=== PATIENT | male | born 1995 | race Caucasian/White ===

== ENCOUNTER 2017-11-16 20:11 | Emergency (ER) | payer SELFPAY ==
[2017-11-16] MEDS ORDERED: TRAZ100T10 PO ×2 (20:18→20:23)
[2017-11-16] MEDS ORDERED: ALPR.5 PO (20:19)
--- NOTE | 2017-11-16 20:25 | PD ---
HPI Chief Complaint: Medication refill Time Seen by Provider: 20:19 Travel History International Travel<30 days: No Contact w/Intl Traveler<30days: No History of Present Illness HPI The patient is 22 years old. He arrives here today having taken a bus from [place]. Upon disembarking from the bus at the bus station he called EMS and asked for a ride to the ER with a complaint of anxiety. He reports taking Xanax and has not taken it for a few days. He denies homicidal and suicidal ideation. He states he would like a refill for his medications including Xanax and trazodone. Location neuropsychiatric. Severity mild. Timing constant. Denies drugs/alcohol. PFSH Social History Tobacco Use: No Allergies-Medications Reported Meds & Prescriptions Reported Meds & Active Scripts Active Reported Xanax (Alprazolam) 0.5 Mg Tab 0.5 Mg PO Q6H PRN Trazodone (Trazodone HCl) 100 Mg Tablet 100 Mg PO HS Review of Systems Except as stated in HPI: all other systems reviewed are Neg General / Constitutional: No: Fever Physical Exam Narrative GENERAL: 22-year-old male well-nourished well-developed, luggage at the bedside SKIN: Warm and dry. HEAD: Atraumatic. Normocephalic. EYES: Pupils equal and round. No scleral icterus. No injection or drainage. ENT: No nasal bleeding or discharge. Mucous membranes pink and moist. NECK: Trachea midline. No JVD. CARDIOVASCULAR: Regular rate and rhythm. RESPIRATORY: No accessory muscle use. Clear to auscultation. Breath sounds equal bilaterally. GASTROINTESTINAL: Abdomen soft, non-tender, nondistended. Hepatic and splenic margins not palpable. MUSCULOSKELETAL: Extremities without clubbing, cyanosis, or edema. No obvious deformities. NEUROLOGICAL: Awake and alert. No obvious cranial nerve deficits. Motor grossly within normal limits. Five out of 5 muscle strength in the arms and legs. Normal speech. PSYCHIATRIC: No HI. No SI. No hallucinations. MDM Medical Decision Making Medical Screen Exam Complete: Yes Emergency Medical Condition: Yes Differential Diagnosis medication refill, generalized anxiety, malingering Narrative Course We can refill the trazodone. The patient denies suicidal ideation. Homicidal ideation is also denied. Pt ready for discharge. Diagnosis Primary Impression: Medication refill Additional Impression: Anxiety Referrals: [facility] call for appointment Med/Other Pt SpecificInfo: Prescription(s) given Scripts Trazodone (Trazodone) 100 Mg Tablet 100 MG PO HS for Control Depression, #30 TAB 0 Refills Prov: Sascha Ibarra MD 11/16/17 Disposition: 01 DISCHARGE HOME Condition: Stable Sascha Ibarra MD November 16, 2017 20:25
== END 2017-11-16 20:58 | disposition home or self-care (01) ==
LOC: NEPD 20:11
DX: Z76.0 Encounter for issue of repeat prescription (principal); F41.9 Anxiety disorder, unspecified
CPT/HCPCS: 99281

== ENCOUNTER 2017-11-17 08:30 | Emergency (ER) | payer SELFPAY ==
[~2017-11-17] VITALS: Ht 182.9 cm; Wt 75.0 kg
[~2017-11-17 08:30] MED LIST: ALPR.5 PO; TRAZ100T10 PO
[2017-11-17 08:35] VITALS: BP 145/92; PULSE 109; RESP 16; TEMP 98.5; O2SAT 99
--- NOTE | 2017-11-17 09:38 | PD ---
HPI Chief Complaint: Psychiatric Symptoms Time Seen by Provider: 08:55 Travel History International Travel<30 days: No Contact w/Intl Traveler<30days: No Traveled to known affect area: No History of Present Illness HPI 22-year-old male presents to the emergency room for evaluation of suicidal ideation. Patient states he plans to jump off a bridge. States he is depressed because he took a bus from [place] after his best friend told him that he would help him. He got off the bus and his friend was not there to help. He has been homeless for the past several days. Says he cannot go back to [place] because his family would not accept him. He has history of bipolar disorder and depression and used to be on medication but has not had it for a while. He works taking trazodone and Xanax. He denies any chronic medical conditions. Denies any medical complaints. PFSH Past Medical History Anxiety: Yes (PANIC ATTACKS, PTSD) Depression: Yes Diminished Hearing: No Tetanus Vaccination: < 5 Years Past Surgical History Surgical History: No Previous Surgery Social History Alcohol Use: No Tobacco Use: Yes Substance Use: Yes (HEROIN DAILY) Allergies-Medications (Allergen,Severity, Reaction): Coded Allergies: No Known Allergies (Verified Allergy, Unknown, 11/17/17) Reported Meds & Prescriptions Reported Meds & Active Scripts Active Trazodone (Trazodone HCl) 100 Mg Tablet 100 Mg PO HS Reported Xanax (Alprazolam) 0.5 Mg Tab 0.5 Mg PO Q6H PRN Review of Systems Except as stated in HPI: all other systems reviewed are Neg Physical Exam Narrative GENERAL: Well-nourished, well-developed male in no acute distress. Afebrile. Ambulatory. SKIN: Focused skin assessment warm/dry. HEAD: Normocephalic. EYES: No scleral icterus. No injection or drainage. NECK: Supple, trachea midline. No JVD or lymphadenopathy. CARDIOVASCULAR: Regular rate and rhythm without murmurs, gallops, or rubs. RESPIRATORY: Breath sounds equal bilaterally. No accessory muscle use. MUSCULOSKELETAL: No cyanosis, or edema. PSYCHIATRIC: No delusional thought processes. No hallucinations. Normal affect. Data Data Last Documented VS Vital Signs Date Time Temp Pulse Resp B/P (MAP) Pulse Ox O2 Delivery O2 Flow Rate FiO2 11/17/17 08:35 98.5 109 16 145/92 (109) 99 [facility] Medical Decision Making Medical Screen Exam Complete: Yes Emergency Medical Condition: Yes Medical Record Reviewed: Yes Differential Diagnosis Malingering, suicidal ideation, depression, bipolar disorder Narrative Course 22-year-old male with history of depression and bipolar disorder presents to the emergency room for evaluation of suicidal ideation. Patient states he came from [place] 2 days ago and has not been able to find a place to live so he wants to kill himself by jumping off a bridge. He denies any medical complaints. No chronic medical conditions. Vital signs stable. Physical exam unremarkable. Patient initially told me that he does not want to go back to [place] because his family would not accept him. He then told the psychiatric nurse practitioner that he would like to go back and his mother would probably buy him a ticket home. Patient's nurse called the pharmacy to verify his prescriptions and he has never had Xanax filled at any [facility] in [place] where he is from. He has only had #7 trazodone filled in their records. When confronted, patient was caught in several lies. He is malingering. He was given resources for outpatient follow-up/homelessness. Diagnosis Primary Impression: Malingering Referrals: [facility] (Out patient) Additional Instructions: Follow-up with resources that we provided you. Return to [place] where your support system is. Disposition: 01 DISCHARGE HOME Condition: Stable Anita Tatum November 17, 2017 09:38
--- NOTE | 2017-11-17 12:49 | PD ---
History of Present Illness Chief Complaint: Psychiatric Symptoms Time Seen by Provider: 10:00 Travel History International Travel<30 Days: No Contact w/Intl Traveler<30days: No Known affected area: No Legal Status Legal Status: Voluntary History of Present Illness: This is a 22-year-old, single, male who presents voluntarily to this facility reporting that he "feels suicidal". He states that his plan would be to "jump off a bridge". Patient has a suitcase and tow is observed lying in the bed, with his hands behind his head, and a very comfortable position with no distress evident. Patient advises that he recently came from [place] because his friend stated that he would help him. However, upon his arrival to [facility] there was no help awaiting him. Reviewed electronic medical record and discussed case with staff. Staff reports that patient was here yesterday seeking [facility] as well. I examined the patient in his room in the main ED. He is awake, alert, oriented 4. His speech is clear, logical, and organized. He does endorse suicide by jumping off a bridge however, again he appears in no apparent distress. There is no indication of internal stimulation or thought blocking. His mood is good his affect is euthymic. He denies homicidal ideation, auditory or visual hallucinations. I can elicit no delusional material. After receiving various stories from staff and patient, I opted to have everybody in the room at the same time. When faced with his nurse, the medical provider, and myself he stated, "I am afraid". When asked where he is afraid of the patient stated, "this [facility]". Patient admits he has no resources available to him so he is currently homeless, jobless, and without friends. He states his entire family is back in [place]. I asked the patient if he thought 1 of his family members would purchase him a bus ticket. He relates that he believes his mother well. For the patient that if he could get a bus ticket we be happy to arrange transport to the bus station. PFSH Past Medical History Anxiety: Yes (PANIC ATTACKS, PTSD) Depression: Yes Diminished Hearing: No Tetanus Vaccination: < 5 Years Past Surgical History Surgical History: No Previous Surgery Psychiatric History Social History Hx Alcohol Use: No Hx Tobacco Use: Yes Hx Substance Use: Yes (HEROIN DAILY) Allergies-Medications (Allergen,Severity, Reaction): Coded Allergies: No Known Allergies (Verified Allergy, Unknown, 11/17/17) Reported Meds & Prescriptions Reported Meds & Active Scripts Active Trazodone (Trazodone HCl) 100 Mg Tablet 100 Mg PO HS Reported Xanax (Alprazolam) 0.5 Mg Tab 0.5 Mg PO Q6H PRN Mental Status Examination Appearance: Appropriate Consciousness: Alert Orientation: x4 Motor Activity: Normal gait Speech: Unremarkable Language: Adequate Fund of Knowledge: Adequate Attention and Concentration: Adequate Memory: Unremarkable Mood: Appropriate, Good Affect: Appropriate, Euthymic Thought Process & Associations: Intact Thought Content: Appropriate Hallucination Type: None Delusion Type: None Suicidal Ideation: No Suicidal Plan: No Suicidal Intention: No Homicidal Ideation: No Homicidal Plan: No Homicidal Intention: No Insight: Adequate Judgment: Adequate MDM Medical Decision Making Medical Record Reviewed: Yes Assessment/Plan This is a 22-year-old single, male who presented to this facility voluntarily for reportedly feeling suicidal. This is the patient's second visit within 24 hours. He is in town recently from [place] and has a suitcase in [place]. Upon talking with him seems this is more of a case management issue. Patient reports that he came to [facility] the understanding that his "friend would help me". However, upon his arrival there is no assistance for him. Since arriving he has been homeless and estranged area. He reports that he is out of funds. His speech is clear logical and organized. There is no indication of internal stimulation nor thought blocking. Although he endorses suicide by jumping from a bridge, he is under no apparent distress and his mood is good with euthymic affect. I can elicit no delusional material. He is neither homicidal nor does he report having auditory or visual hallucinations. Patient ultimately admitted that he was having difficulty being here. He does not meet [facility] more and patient admission criteria. He would like to return home and is contacting his mother in an effort to procure a bus ticket. We will ensure that he is transported to the bus station. He will be advised to return to this facility should his condition worsen at any time. Orders Orders Ed Discharge Order (11/17/17 10:14) Psych Screen (11/17/17 10:22) Results Vital Signs Date Time Temp Pulse Resp B/P (MAP) Pulse Ox O2 Delivery O2 Flow Rate FiO2 11/17/17 08:35 98.5 109 16 145/92 (109) 99 Diagnosis Primary Impression: Adjustment disorder Additional Impression: Malingering Psychiatrically Cleared: Yes Referrals: [facility] (Out patient) [facility] as needed Departure Forms: Tests/Procedures Patient Instructions: General Instructions Additional Instructions: Follow-up with resources that we provided you. Return to [place] where your support system is. Disposition: 01 DISCHARGE HOME Condition: Stable Problem Qualifiers Janell Guzman November 17, 2017 12:49
== END 2017-11-17 10:45 | disposition home or self-care (01) ==
LOC: NEPD 08:30
DX: F43.20 Adjustment disorder, unspecified (principal); Z76.5 Malingerer [conscious simulation]; Z59.0 Homelessness
CPT/HCPCS: 99283